=== PATIENT | male | born 1970 | race Caucasian/White ===

== ENCOUNTER 2020-08-01 14:46 | Emergency (ER) | payer OTHER, MEDICARE ==
[2020-08-01 15:29] LABS: BASOPHIL 0.5 % (0-2); EOSINOPHIL 0.2 % (0-5); HCT 54.3 % (42.0-52.0); HGB 19.5 g/dl (13.2-18.0); LYMPHOCYTE 13.4 % (15-48); MCH 31.1 pg (25.0-31.0); MCHC 35.9 g/dL (32.0-36.0); MCV 86.6 fL (78.0-100.0); MONOCYTE 19.1 % (0-12); MPV 11.7 fL (6.0-9.5); NEUTROPHIL 66.3 % (41-80); NRBC 0; PLT 165 K/uL (150-400); RBC 6.27 M/uL (4.70-6.00); RDW 11.9 % (11.5-14.0); WBC 5.6 K/uL (4.0-10.5)
[2020-08-01 15:49] LABS: LACTIC ACID 2.9 mmol/L (0.4-1.9)
[2020-08-01 15:53] LABS: ALBUMIN 4.6 g/dL (3.4-5.0); ALKALINE PHOSHATASE 79 U/L (46-116); ALT 88 U/L (16-63); AST 31 U/L (15-37); BILIRUBIN - TOTAL 0.7 mg/dL (0.2-1.0); BUN 32 mg/dL (7-18); BUN/CREAT RATIO (CALC) 22.1 RATIO; CHLORIDE 96 mmol/L (98-107); CO2 (BICARBONATE) 20 mmol/L (21-32); CREATININE 1.45 mg/dL (0.67-1.17); GLOBULIN (CALCULATION) 4.8 g/dL; GLUCOSE 178 mg/dL (74-106); LIPASE 96 U/L (73-393); POTASSIUM 3.3 mmol/L (3.5-5.1); TOTAL PROTEIN 9.4 g/dL (6.4-8.2)
[2020-08-01] MEDS ORDERED: LIBRIUM25 MG PO (19:25)
[2020-08-01] MEDS ORDERED: ONDANSETRON ODT4 MG PO (19:25)
[2020-08-01 19:31] LABS: BILIRUBIN 1+ mg/dL (NEGATIVE); BLOOD NEGATIVE Ery/uL (NEGATIVE); CLARITY CLEAR (CLEAR); COLOR YELLOW (YELLOW); GLUCOSE (U) NORMAL (NORMAL); LEUKOCYTES NEGATIVE Leu/uL (NEGATIVE); NITRITE NEGATIVE (NEGATIVE); PROTEIN 2+ mg/dL (NEGATIVE); SPECIFIC GRAVITY >=1.030 (1.001-1.030); UROBILINOGEN 0.2 mg/dL (0.2-1.0)
[2020-08-01 19:35] LABS: AMPHETAMINES NEGATIVE (NEGATIVE); BARBITURATES NEGATIVE (NEGATIVE); ECSTASY (MDMA) NEGATIVE (NEGATIVE); MARIJUANA (THC) POSITIVE (NEGATIVE); METHADONE NEGATIVE (NEGATIVE); OPIATES POSITIVE (NEGATIVE); OXYCODONE NEGATIVE (NEGATIVE)
[2020-08-01 19:38] LABS: SQUAMOUS EPITHELIAL CELLS RARE
== END 2020-08-01 20:45 | disposition home or self-care (01) ==
LOC: FER 14:46
PROVIDERS: Emergency Medicine
DX: F10.239 Alcohol dependence with withdrawal, unspecified (principal); E86.0 Dehydration; Y90.0 Blood alcohol level of less than 20 mg/100 ml; R42 Dizziness and giddiness; M25.50 Pain in unspecified joint; F41.9 Anxiety disorder, unspecified; R00.0 Tachycardia, unspecified; Z79.84 Long term (current) use of oral hypoglycemic drugs; Z79.891 Long term (current) use of opiate analgesic; Z79.899 Other long term (current) drug therapy
CPT/HCPCS: 36415; 71045; 80053; 80305; 81001; 83605; 83690; 84443; 85025; G0480; J2405; J3411; J3475; J7030